=== PATIENT | female | born 1960 | race American Indian/Alaskan Native ===

== ENCOUNTER 2017-07-29 08:08 | Emergency (ER) | payer SELFPAY ==
[2017-07-29 08:21] VITALS: BP 179/83
--- NOTE | 2017-07-29 09:51 | Emergency Department Report ---
ED Extremity Problem HPI - General Chief complaint: Extremity Injury, Lower Stated complaint: HTN, foot pain Time Seen by Provider: 07/29/17 09:29 Source: patient, family Mode of arrival: Ambulatory Limitations: No Limitations, Other - History of Present Illness Initial comments: Patient reports that she has been having an right foot pain consistently for over 2 weeks. She says she has had similar pain in the past. She says she's never been diagnosed with neuropathy but her mom and her sister has the same pain. She denies being a smoker, denies any diagnosis of gout by her primary care she says she was seen by primary care for gout and he gave her outpatient lab requisition to get lab work done at [facility] outpatient lab. This is an 05/20/2017. Patient said she went to [facility] on 07/21/2017 and she was treated for gout with indomethacin and prednisone. She she will pay for she said the pain went away low but it still there and it's getting worse today. Pain is 10 out of 10 and aching and burning. Denies any fever or chills. Denies any trauma. Denies any history of blood clots to her lungs or R extremity. Her only medical problem is hypertension and she's taken HCTZ, lisinopril and amlodipine. She says she does not drink all call or smoke and she does not eat red meats or shellfish excessively. Patient does have a primary care doctor. She denies any chest pain or shortness of breath. Denies any recent long distance travel by airplane or car. Denies any circulation problem. Denies diabetes. Patient also reports that she was having bouts of dizziness and she was seen by her primary care physician and this why he sent her for outpatient labs. She says she is not having any dizziness at present. MD Complaint: extremity pain, joint paint Onset/Timin -: week(s) Location: right (foot), lower extremity (foot) History of Same: Yes -: No myalgia, Yes arthralgia, No fever, No associated dyspnea, No associated chest pain Radiation: none Severity scale (0 -10): 10 Quality: burning, aching Consistency: intermittent Improves with: rest Worsens with: weight bearing, walking, palpation Associated Symptoms: arthralgias. denies: chest pain, shortness of breath, fever, myalgias, rash - Related Data Previous Rx's Medication Instructions Recorded Last Taken Type Hydrochlorothiazide [HCTZ] 25 mg PO QDAY #30 tablet 08/26/15 Unknown Rx Lisinopril [Zestril TAB] 10 mg PO QDAY #30 tablet 08/26/15 Unknown Rx amLODIPine [Norvasc] 10 mg PO DAILY #30 tablet 08/26/15 Unknown Rx Naproxen [Naprosyn TAB] 500 mg PO BID PRN #12 tablet 07/29/17 Unknown Rx predniSONE [Deltasone] 50 mg PO QAM #5 tablet 07/29/17 Unknown Rx Allergies Allergy/AdvReac Type Severity Reaction Status Date / Time No Known Allergies Allergy Unverified 08/26/15 11:17 ED Review of Systems ROS: Stated complaint: HTN,DIZZINESS Other details as noted in HPI Comment: All other systems reviewed and negative Constitutional: no symptoms reported Respiratory: no symptoms reported Cardiovascular: denies: chest pain, palpitations, edema, syncope Gastrointestinal: denies: abdominal pain, nausea, vomiting, diarrhea Musculoskeletal: arthralgia. denies: back pain, joint swelling, myalgia Skin: denies: rash Neurological: abnormal gait (Due to pain in rt foot). denies: headache, numbness, paresthesias, confusion, vertigo ED Past Medical Hx - Past Medical History Previous Medical History?: Yes Hx Hypertension: Yes Additional medical history: GOUT,Vaginal delivery x 5 - Surgical History Past Surgical History?: Yes Hx Cholecystectomy: Yes Additional Surgical History: Tubaligation, D&C - Family History Family history: hypertension, other (Neuropathy) - Social History Smoking Status: Never Smoker Substance Use Type: None Other Social History: Single - Medications Home Medications: Home Medications Medication Instructions Recorded Confirmed Last Taken Type Hydrochlorothiazide [HCTZ] 25 mg PO QDAY #30 tablet 08/26/15 Unknown Rx Lisinopril [Zestril TAB] 10 mg PO QDAY #30 tablet 08/26/15 Unknown Rx amLODIPine [Norvasc] 10 mg PO DAILY #30 tablet 08/26/15 Unknown Rx Naproxen [Naprosyn TAB] 500 mg PO BID PRN #12 tablet 07/29/17 Unknown Rx predniSONE [Deltasone] 50 mg PO QAM #5 tablet 07/29/17 Unknown Rx ED Physical Exam - General Limitations: No Limitations, Other General appearance: alert, in no apparent distress - Head Head exam: Present: atraumatic, normocephalic, normal inspection - Eye Eye exam: Present: normal appearance, PERRL, EOMI Pupils: Present: normal accommodation - ENT ENT exam: Present: normal exam, normal orophraynx, mucous membranes moist - Neck Neck exam: Present: normal inspection, full ROM. Absent: tenderness, meningismus, lymphadenopathy, thyromegaly - Respiratory Respiratory exam: Present: normal lung sounds bilaterally. Absent: respiratory distress, wheezes, rales, rhonchi, stridor, chest wall tenderness, accessory muscle use, decreased breath sounds, prolonged expiratory - Cardiovascular Cardiovascular Exam: Present: normal rhythm, bradycardia, normal heart sounds. Absent: systolic murmur, diastolic murmur - GI/Abdominal GI/Abdominal exam: Present: soft, normal bowel sounds. Absent: distended, tenderness, guarding, rebound, rigid, organomegaly, mass, bruit, hernia - Extremities Exam Extremities exam: Present: normal inspection, full ROM, tenderness (right anterior foot and ankle), normal capillary refill, other (no clubbing, cyanosis or edema noted to all extremities. +2 pulses to all extremities.). Absent: pedal edema, joint swelling, calf tenderness - Expanded Lower Extremity Exam Right Hip exam: Present: normal inspection, full ROM, pelvic stability. Absent: tenderness, swelling, abrasion, laceration, ecchymosis, deformity, crepidus, dislocation, erythema, external rotation, internal rotation, shortening Upper Leg exam: Present: normal inspection, full ROM. Absent: tenderness, swelling, abrasion, laceration, ecchymosis, deformity, crepidus, dislocation, erythema Knee exam: Present: normal inspection, full ROM, full knee extension. Absent: tenderness, swelling, abrasion, laceration, ecchymosis, deformity, crepidus, effusion, pain w/ pronation/supination, posterior draw sign, pain/laxity with valgus, pain/laxity with varus Lower Leg exam: Present: normal inspection, full ROM. Absent: tenderness, swelling, abrasion, laceration, ecchymosis, deformity, crepidus, dislocation, erythema, palpable cord, Demetria's sign Ankle exam: Present: normal inspection, full ROM, tenderness. Absent: swelling , abrasion, laceration, ecchymosis, deformity, crepidus, dislocation, erythema Foot/Toe exam: Present: normal inspection, full ROM, tenderness. Absent: swelling, abrasion, laceration, ecchymosis, deformity, crepidus, dislocation, erythema, amputation, puncture wound, foreign body, calcaneal tenderness, tenderness at base of 5th metatarsal, nail avulsion, subungual hematoma Neuro vascular tendon exam: Present: no vascular compromise. Absent: pulse deficit, abnormal cap refill, motor deficit, sensory deficit, tendon deficit, extremity cold to touch, pallor, abnormal 2-point discrimination, decreased fine /light touch, foot drop, peroneal nerve deficit, significant pain with passive ROM of distal joint Gait: Positive: observed and limited by pain - Back Exam Back exam: Present: normal inspection, full ROM. Absent: tenderness, CVA tenderness (R), CVA tenderness (L), muscle spasm, paraspinal tenderness, vertebral tenderness, rash noted - Neurological Exam Neurological exam: Present: alert, oriented X3, abnormal gait ( Due to right foot pain, patient is limp in), reflexes normal. Absent: motor sensory deficit - Psychiatric Psychiatric exam: Present: normal affect, normal mood - Skin Skin exam: Present: warm, dry, intact, normal color. Absent: rash ED Course Vital Signs 07/29/17 08:17 Temperature 98.5 F Pulse Rate 58 L Respiratory 18 Rate Blood Pressure 179/83 O2 Sat by Pulse 98 Oximetry - Reevaluation(s) Reevaluation #1: 07/29/17 11:56 Patient given and Toradol 30 mg im and deltasone 60 mg po. Hydrocodone 5/325mg po x1 tab. She voiced releif of pain and able to ambulate without pain ED Medical Decision Making - Radiology Data Radiology results: report reviewed Xray of Right ankle reveals degenerative disease and mild swelling to rt foot. No acute fracture or dislocation. - Medical Decision Making ED Course: Patient here reports pain to right foot of unknown cause. She recentlY SAW HER pcp WHO ORDERED OP LABS WHICH SHE HAS NOT DONE. She will be going to OP lab to have lab work done after seen in ED. patient said that she was treated for gout on 07/21/2017 with indomethacin and prednisone which helped a little. She says she has not been diagnosed with gout by her primary care they just treated her at [facility] for gout. Patient x- ray showed that she has degenerative arthritis in her right ankle and mild soft tissue swelling in right foot. She has no acute fracture or dislocation. Patient was given Toradol 30 mg IM, Pimento 5/325 mg 1 by mouth and amoxicillin 60 mg. Emergency room and she voiced that she felt better. She said she is able to stand and her feet without any pain. I discussed the patient her x-ray results. I told her that she could have neuropathy versus gout versus arthritis and we will refer her back to her primary care and also to supervisor pile driving for further investigation. Patient discharged home with prescription for naproxen and prednisone and discharged home with her family in stable condition. She is aware that she has a good outpatient lab to have lab work done that was ordered by her primary care physician and she was directed to outpatient laboratory. Critical care attestation.: If time is entered above; I have spent that time in minutes in the direct care of this critically ill patient, excluding procedure time. ED Disposition Clinical Impression: Arthralgia of multiple sites Osteoarthritis Qualifiers: Osteoarthritis location: ankle Osteoarthritis type: unspecified Laterality: right Qualified Code(s): M19.071 - Primary osteoarthritis, right ankle and foot Disposition: - TO HOME OR SELFCARE Is pt being admited?: No Does the pt Need Aspirin: No Condition: Stable Instructions: Osteoarthritis (ED), Arthralgia (ED) Additional Instructions: Please proceed to outpatient lab to have lab work drawn that was ordered by her primary care physician. Referral to senior design engineering specialist Call your primary care doctor to schedule an appointment for follow-up visit in 2-3 days. take naproxen for pain Prescriptions: Naproxen [Naprosyn TAB] 500 mg PO BID PRN #12 tablet PRN Reason: Pain predniSONE [Deltasone] 50 mg PO QAM #5 tablet Referrals: PRIMARY CARE, [Primary Care Provider] - 2-3 Days EULALIO CHEN DPM [Staff Physician] - 2-3 Days Forms: Work/School Release Form(ED)
[2017-07-29] MEDS ORDERED: TORADOL IM ONE (09:52)
[2017-07-29] MEDS ORDERED: NORCO 5/325 PO ONE (09:52)
[2017-07-29] MEDS ORDERED: DELTASONE PO ONE (09:52)
--- NOTE | 2017-07-29 10:24 | XRay Report ---
RIGHT FOOT, 3 views: History: Right foot pain The bony architecture is intact. Bony alignment is normal. No soft tissue abnormalities are seen. Mild osteoarthritic changes are identified at the first metatarsophalangeal joint. IMPRESSION: Mild degenerative changes. No acute process is noted.
--- NOTE | 2017-07-29 10:24 | XRay Report ---
RIGHT ANKLE, 3 views: History: Right ankle pain. Findings: Mild soft tissue swelling is identified. No acute osseous abnormality or joint pathology is identified. The fifth metatarsal base is intact. Impression: Soft tissue swelling. No acute osseous injury.
== END 2017-07-29 12:27 | disposition home or self-care (01) ==
LOC: ED 08:08
DX: M19.071 Primary osteoarthritis, right ankle and foot (principal); M25.50 Pain in unspecified joint; I10 Essential (primary) hypertension
CPT/HCPCS: 73610; 73630; 96372; 99283; J1885; J7512